=== PATIENT | female | born 1935 | race Caucasian/White ===

== ENCOUNTER 2018-07-04 13:11 | Inpatient (IN) | payer MEDICARE ==
[~2018-07-04] VITALS: Ht 162.6 cm; Wt 79.4 kg
[2018-07-04] VITALS (14 sets, daily range): BP systolic 96–153; BP diastolic 58–71
[~2018-07-04 13:11] MED LIST: ceFAZolin 1gm IVPB IVPB ONE; celeBREX 200mg Cap **SURGERY PATIENTS ONLY ORAL ONE; oxyCONTIN 20mg tab ORAL ONE
--- NOTE | 2018-07-04 14:13 | Pre-Procedure Note/Attestation ---
Pre-Procedure Note/Attestation Complete Prior to Procedure Planned Procedure: left Procedure Narrative: reverse shoulder replacement Indications for Procedure Pre-Operative Diagnosis: left shoulder rc arthropathy Attestation I attest that I discussed the nature of the procedure; its benefits; risks and complications; and alternatives (and the risks and benefits of such alternatives ), prior to the procedure, with the patient (or the patient's legal field service representative). I attest that, if there was a reasonable possibility of needing a blood transfusion, the patient (or the patient's legal field service representative) was given the [facility] standardized written summary, pursuant to the Yoni Bob Blood Safety Act ([place] Health and Safety Code # 1645, as amended). I attest that I re-evaluated the patient just prior to the surgery and that there has been no change in the patient's H&P, except as documented below: Ravin Juares MD July 04, 2018 14:13
--- NOTE | 2018-07-04 14:13 | Operative Note - PDOC ---
Operative Note Operative Note Pre-op Diagnosis: left shoulder rc arthropathy Procedure: see op report Post-op Diagnosis: same as pre-op plus Operative Findings: consistent w/pre-op dx studies Anesthesia: regional Specimen: none Complications: none Condition: stable Estimated Blood Loss: none Implant(s) used?: Yes Ravin Juares MD July 04, 2018 14:13
[2018-07-04] MEDS ORDERED: Hydromorphone 0.5mg/0.5ml inj SUBQ PRN (14:15)
[2018-07-04] MEDS ORDERED: HYDROcodone/Acetamin 5/325 tab ORAL PRN (14:15)
[2018-07-04 14:28] LABS: INR 1.1 (0.9-1.1)
[2018-07-04] MEDS ORDERED: ASPIR 8181 MG ORAL (14:29)
[2018-07-04] MEDS ORDERED: COLCHICINE0.6 M1 PO (14:29)
[2018-07-04] MEDS ORDERED: CRESTOR40 MG ORAL (14:29)
[2018-07-04] MEDS ORDERED: XARELTO10 MG ORAL (14:29)
[2018-07-04] MEDS ORDERED: LEVOTHYROXINE125 MCG ORAL (14:29)
[2018-07-04] MEDS ORDERED: AMBIEN10 M1 ORAL (14:29)
[2018-07-04] MEDS ORDERED: PROTONIX40 MG ORAL (14:29)
[2018-07-04] MEDS ORDERED: SPIRONOLACTONE25 MG ORAL (14:29)
[2018-07-04] MEDS ORDERED: AMIODARONE HCL100 MG ORAL (14:29)
[2018-07-04] MEDS ORDERED: POTASSIUM CHLOR8 ME2 PO (14:29)
[2018-07-04] MEDS ORDERED: FUROSEMIDE40 MG ORAL (14:29)
[2018-07-04] MEDS ORDERED: BUPROPION XL300 M1 PO (14:29)
[2018-07-04] MEDS ORDERED: Ropivacaine 5mg/ml Vial 30ml INJ ONE (15:11)
[2018-07-04] MEDS ORDERED: Sodium Chloride 10ml vial INJ ONE (15:12)
[2018-07-04] MEDS ORDERED: Midazolam 2mg/2ml Inj ONE (15:12)
[2018-07-04] MEDS ORDERED: Lidocaine 1% MPF 10mg/ml 5ml ONE (15:12)
[2018-07-04] MEDS ORDERED: Propofol 200mg/20ml IV ONE (15:12)
[2018-07-04] MEDS ORDERED: Dexamethasone 4mg/ml vial ONE (15:12)
--- NOTE | 2018-07-04 15:30 | Anethesia Preoperative Eval ---
Anesthesia Pre-op PMH/ROS General Date of Evaluation: July 04, 2018 Time of Evaluation: 15:41 Anesthesiologist: Shellie ASA Score: ASA 3 Mallampati Score Class I : Soft palate, uvula, fauces, pillars visible Class II: Soft palate, uvula, fauces visible Class III: Soft palate, base of uvula visible Class IV: Only hard plate visible Mallampati Classification: Class II Surgeon: Mor Diagnosis: L Shoulder Pain Surgical Procedure: L Shoulder Reverse Replacment Anesthesia History: PONV Family History: no anesthesia problems Allergies: Coded Allergies: No Known Allergies (Verified , 07/04/18) Medications: see eMAR Patient NPO?: Yes NPO Date: July 04, 2018 NPO Time: 0515 Past Medical History Cardiovascular: Reports: HTN, CAD - CABG, ID, other - HL Pulmonary: Reports: asthma Neurologic/Psychiatric: Reports: depression/anxiety Endocrine: Reports: hypothyroidism PSxH Narrative: CABGX4, Cholecystectomy, L Femur, Bilateral THR, Right Knee, Shoulder Replacement Anesthesia Pre-op Phys. Exam Physician Exam Last Vital Signs Date Time Temp Pulse Resp B/P (MAP) Pulse Ox O2 Delivery O2 Flow Rate FiO2 07/04/18 14:00 Room Air 07/04/18 13:30 97.8 61 15 104/63 99 Constitutional: NAD Neurologic: CN 2-12 intact Cardiovascular: RRR Respiratory: CTA Gastrointestinal: S/NT/ND Airway Exam Mallampati Score: Class II MO: limited ROM: limited Teeth: missing Anesthesia Pre-op A/P Labs Coagulation Test 07/04/18 14:00 Prothrombin Time 12.0 SEC (9.30-11.50) H Prothromb Time International Ratio 1.1 (0.9-1.1) Activated Partial Thromboplast Time 27 SEC (23-33) Risk Assessment & Plan Assessment: ASA 3 Plan: GA, SED, L Supraclavicular Block Status Change Before Surgery: No Pre-Antibiotics Dru Grams Ancef IV Given Within 1 Hr of Incision: Yes Time Given: 16:01 Bc Hensley MD July 04, 2018 15:30
--- NOTE | 2018-07-04 15:31 | Immediate Post-Op Evaluation ---
Immediate Post-Op Evalulation Immediate Post-Op Evalulation Procedure: L Shoulder Reverse Replacment Date of Evaluation: July 04, 2018 Time of Evaluation: 18:40 IV Fluids: 900 LR Blood Products: 0 Estimated Blood Loss: 75 Urinary Output: 0 Blood Pressure Systolic: 153 Blood Pressure Diastolic: 71 Pulse Rate: 56 Respiratory Rate: 16 O2 Sat by Pulse Oximetry: 100 Temperature (Fahrenheit): 97 Pain Score (1-10): 2 Nausea: No Vomiting: No Complications 0 Patient Status: awake, reacts, patent, none Hydration Status: adequate Dru Grams Ancef IV Given Within 1 Hr of Incision: Yes Time Given: 16:01 Bc Hensley MD July 04, 2018 15:31
--- NOTE | 2018-07-04 15:32 | 48 Hour Post Anesthesia Eval ---
Post Anesthesia Evaluation Procedure: L Shoulder Reverse Replacment Date of Evaluation: July 04, 2018 Time of Evaluation: 20:46 Blood Pressure Systolic: 138 0: 89 Pulse Rate: 52 Respiratory Rate: 18 Temperature (Fahrenheit): 98.2 O2 Sat by Pulse Oximetry: 100 Airway: patent Nausea: No Vomiting: No Pain Intensity: 2 Hydration Status: adequate Cardiopulmonary Status: Stable Mental Status/LOC: patient returned to baseline Follow-up Care/Observations: 0 Post-Anesthesia Complications: 0 Follow-up care needed: N/A Bc Hensley MD July 04, 2018 15:32
[2018-07-04] MEDS ORDERED: Ketamine 500mg Inj ONE (15:34)
[2018-07-04] MEDS ORDERED: LR 1000ml ONE (15:40)
[2018-07-04] MEDS ORDERED: Sterile Water Irrig 1000ml IRRIG ONE (15:40)
[2018-07-04] MEDS ORDERED: NS Irrig 2000ml IRRIG ONE (15:40)
[2018-07-04] MEDS ORDERED: NS Irrig 1000ml ONE (15:40)
[2018-07-04] MEDS ORDERED: Bacitracin 50000 Units Vial ONE (15:43)
[2018-07-04] MEDS ORDERED: NeoSporin Gu Irrig 1ml Amp IRRIG ONE (15:43)
[2018-07-04] MEDS ORDERED: Glycopyrrolate 0.2mg/ml 1ml Vial ONE ×2 (16:18→17:24)
[2018-07-04] MEDS ORDERED: Lidocaine 1% 10mg/ml/Epi 0.005mg/ml 30ml vial INJ ONE (16:32)
[2018-07-04] MEDS ORDERED: Tranexamic Acid 1,000 MG in NS 65 ML IV ONE ×2 (16:45→17:45)
[2018-07-04] MEDS ORDERED: Hydrogen Peroxide 473ml Bottle TOPIC ONE (18:05)
[2018-07-04] MEDS: D5 1/2NS 1,000 ML IV SCH (19:55)
--- NOTE | 2018-07-04 19:55 | NUR ---
NURSE NOTES: Received report & pt from NAWAF Whittington (PACU) via bed. Pt lying in bed, a&ox4, on O2 via NC @ 3LPM, family members at bedside. No s/s of acute distress & no c/o pain at this time. Pt with left supraclavicular nerve block, still unable to move left arm, but left arm warm to touch. Pt belongings signed & accounted for. Surgical dressing C/D/I. IV site intact with IVF running as ordered. Oriented to hospital facility, all questions addressed. Bed in lowest position, call light within reach. Will continue to monitor.
[2018-07-04] MEDS: Docusate 100mg cap ORAL SCH (21:01)
[2018-07-04] MEDS: oxyCONTIN 20mg tab ORAL SCH (21:02)
[2018-07-04] MEDS: ceFAZolin sod 1 GM in D5W 55 ML IV SCH (23:40)
[2018-07-05] VITALS: BP 119/64
--- NOTE | 2018-07-05 00:30 | Operative Note - Dictated ---
DATE OF OPERATION: 07/04/2018 PREOPERATIVE DIAGNOSES: 1. Left shoulder arthritis. 2. Left shoulder chronic rotator cuff tear. POSTOPERATIVE DIAGNOSES: 1. Left shoulder arthritis. 2. Left shoulder chronic rotator cuff tear. PROCEDURE: 1. Left shoulder reverse total shoulder replacement. 2. Left shoulder open subpectoral biceps tenodesis. 3. Subacromial bursectomy and release of the CA ligament. SURGEON: Ravin Juares M.D. ANESTHESIA: Interscalene with general. INDICATION FOR PROCEDURE: The patient is a pleasant female who has got progressive left shoulder pain. She had MRI, which showed chronic supraspinatus and infraspinatus tendon tear with partial tearing of the subscap. She had constant pain and difficulty with activities of daily living, elected to undergo reverse shoulder replacement. Risks, limitations, expectations, and complications of procedure were discussed in detail. All questions addressed. DESCRIPTION OF PROCEDURE: After informed consent was obtained, the patient was brought to the operative room. The patient was placed under monitored anesthesia control. The patient then carefully positioned in beach chair position. Left shoulder was prepped and draped in a sterile manner. Time-out was performed. Deltopectoral incision was then made. The biceps tendon was identified and tenotomized along the bicipital tuberosity. A subpectoral biceps tenodesis was performed using #2 FiberWire. The subscapularis was then peeled off the lesser tuberosity. The subacromial bursectomy was completed along with release of the CA ligament. Once this was done, the humeral head was dislocated. Anterior osteophytes were removed off the humeral head and the humeral neck cut was then made and the humeral stem was then broached to size 11. Once this was completed, the glenoid was well visualized. The labrum was removed 360 degrees circumferentially to make sure we can see the inferior, superior, anterior, and posterior borders of the glenoid. Guide was then placed along with the . A 32 mm glenoid spear was then placed. Three cortical screws were placed along with a 32 mm cup. Once this was done, it was trialed with a size 11 stem with a 32 +4 mm insert. There was good tension of the coracoid tendon. Shoulder abducted. The humeral head was pointed in the center of the glenoid, which is 150 abduction 90, external rotation was 70, internal rotation was 70. At this point, the trial components were removed. Final implants were impacted into place. The wound was copiously irrigated. The skin was closed with #1 Vicryl suture, 2-0 Vicryl, 3-0 Monocryl suture. Dermabond and compression dressing was applied. The patient was awoken and taken to recovery room with stable vital signs. ESTIMATED BLOOD LOSS: None. COMPLICATIONS: None. SPECIMENS: None. IMPLANTS: None. Ravin Juares M.D. DR: EUGENE JOB#: [id number] CC:
[2018-07-05] MEDS: D5 1/2NS 1,000 ML IV SCH ×2 (03:03→17:40)
[2018-07-05 04:00] VITALS: BP 103/50
--- NOTE | 2018-07-05 06:46 | NUR ---
NURSE NOTES: Pt hasn't urinated since after surgery last night 1954. Per pt, she's only drinking sips of water. Encouraged to drink more fluids. Bladder scan done with 371ml PVR result. Encouraged pt to sit down now using commode to try to urinate but pt states she'll do it later after breakfast. Informed Dr. Juares, awaiting response. Will endorse to AM shift.
--- NOTE | 2018-07-05 07:30 | NUR ---
HAND-OFF: Report given to NAWAF Clarke. Rounds done. Pt in stable condition.
--- NOTE | 2018-07-05 07:40 | NUR ---
NURSE NOTES: Received patient in bed, awake, alert and oriented x4. Not in acute respiratory/cardiac distress @ this time. Surgical dressing intact, dry and clean, no visible bleeding. Able to move her fingers, skin warm to touch.Patient denies any pain or discomfort but has not urinated yet.Abdomen is soft to touch.Dr. Juares replied to slot shift manager to monitor one more hour and offer in and out cath if patient wants. RN encouraged patient to get out of bed so she can use a commode or go to bathroom but patient said " I want to wait for the physical therapy."Call light and personnel items within reach. IV intact and running IVF. Bed is in low position and locked. Will continue plan of care and monitor.
[2018-07-05 08:00] VITALS: BP 104/56
[2018-07-05] MEDS: Docusate 100mg cap ORAL SCH ×3 (09:11→17:40)
[2018-07-05] MEDS: oxyCONTIN 20mg tab ORAL SCH ×2 (09:11→20:02)
[2018-07-05] MEDS: celeBREX 200mg Cap **SURGERY PATIENTS ONLY ORAL SCH (09:11)
[2018-07-05] MEDS: ceFAZolin sod 1 GM in D5W 55 ML IV SCH ×2 (09:12→16:22)
--- NOTE | 2018-07-05 10:20 | NUR ---
PT Note PT daron completed, treatment initiated. Patient has an unsteady gait with a stooped posture. Mila is slow and has inadequate dorsiflexion on swing phase. Patient needs PT services to increase her muscle strength and balance to improve her safety in mobility and gait to enable her to return to independent/assisted living facility. Addendum: 07/05/18 at 1021 by BYRON LEE PT Amended: Links added.
--- NOTE | 2018-07-05 10:40 | NUR ---
NURSE NOTES: Patient urinated and bladder scan done with PVR 304ml. Lower abdomen is soft to touch, patient does not complain of pain or discomfort. Will continue to monitor.
--- NOTE | 2018-07-05 11:06 | NUR ---
NURSE NOTES: Patient was seen by Dr. Booth who is covering for Dr. Holbrook. RN relayed patient's voiding status PVR was 304 after patient urinated with no new order for now. Dr. Booth ordered if PVR <200 this afternoon, patient can go home. Dr. Booth went through home medication with new order to continue amiodarone, protonix, levothyroxine and home health for physical therapy per surgeon and continue home meds except ASA and Xarelto upon discharge. Xarelto to resume on Saturday. Patient states that if possible she wants to go home today. Will continue to monitor.
--- NOTE | 2018-07-05 11:07 | NUR ---
NURSE NOTES: Dr. Booth aware of episodes of bradycardia last night and per patient, it is her baseline.
--- NOTE | 2018-07-05 11:48 | NUR ---
NURSE NOTES: RN offered protonix but patient refused to take it stating " I do not need it now." RN educated about med and explained the risks and benefits.
[2018-07-05 12:00] VITALS: BP 110/73
--- NOTE | 2018-07-05 13:38 | NUR ---
CASE MANAGEMENT: REVIEW 82Y/F DIRECT ADMIT FOR SURGERY CC: LEFT SHOULDER PAIN SI: LEFT SHOULDER RC ARTHROPATHY REVERSE LEFT SHOULDER REPLACEMENT 07/04 T 97.1 HR 57 RR 16 BP 153/71 SAT 100% SIMPLE MASK FLOW RATE 6 PT/INR 12.0/1.1 IS: OXYCONTIN PO X1 CELEBREX PO X1 CEFAZOLIN IV X1 PATIENT ADMITTED TO MED/SURG UNIT 07/04/2018 DCP: PATIENT IS FROM HOME
--- NOTE | 2018-07-05 15:05 | Pulmonology Progress Note ---
Assessment/Plan Assessment/Plan Pulmonary Consultation Note HPI: Patient is an 82 year old woman status post left reverse shoulder replacement for left shoulder rc arthropathy, tolerated procedure well, no current complaints Denies shortness of breath, chest pain, nausea/vomiting. PMH: Hypertension, Coronary Artery Disease, Previous [place], Congestive Heart Failure, Atrial Fibrillation on Pradaxa pre-operatively, Previous 4 vessel CABG , Hypothyroidism, GERD, Hyperlipidemia Pre-operative medications: Lasix 40 mg faily, Spironolactone 25 mg daily, Amiodarone 200mg daily, Synthyroid 150 mcg daily, Protonix 40mg daily, KCL 8mg daily, Crestor 40 mg daily, Ambien 10mg prn QHS Allergies: NKDA ROS: Negative aside from above FH: NC Habits: NC Social Hx: NC Physical Examination: Lying comfortably in bed, left arm in sling HEENT: NCAT, moist mm, JVP 6cm Chest: CTAB, no wheeze Heart: HS1, HS2, RRR Abdomen: SNTND Extrem: Well perfused, no edema, left arm in sling well perfused, wounds dressed 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 AND 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: Intact Impression Patient status post left reverse shoulder replacement for left shoulder rc arthropathy, tolerated procedure well, no current complaints Hypertension Coronary Artery Disease Previous [place], Congestive Heart Failure Atrial Fibrillation on Pradaxa pre-operatively Previous 4 vessel CABG Hypothyroidism GERD Hyperlipidemia Plan Continue CIVIL DESIGN SPECIALIST medications Ensure voiding adequately Restart Pradaxa after 48 hours OK for DC if cleared by surgery Subjective ROS Limited/Unobtainable: No Allergies: Coded Allergies: No Known Allergies (Verified , 07/04/18) Objective Last 24 Hour Vital Signs Date Time Temp Pulse Resp B/P (MAP) Pulse Ox O2 Delivery O2 Flow Rate FiO2 07/05/18 12:00 98.1 50 19 110/73 (85) 95 07/05/18 09:00 Room Air 07/05/18 08:00 98.3 93 19 104/56 (72) 95 07/05/18 04:00 98.4 48 17 103/50 (67) 94 07/05/18 00:00 98.2 60 16 119/64 (82) 96 07/04/18 21:00 Nasal Cannula 1.0 07/04/18 20:56 97.9 48 17 115/58 (77) 100 07/04/18 19:45 55 17 132/62 98 Nasal Cannula 3 07/04/18 19:25 97.8 53 16 141/63 100 Nasal Cannula 3 07/04/18 19:15 49 16 146/66 100 Nasal Cannula 3 07/04/18 19:00 52 16 145/64 100 Nasal Cannula 3 07/04/18 18:50 57 16 147/65 100 Simple Mask 6 07/04/18 18:45 52 18 146/66 100 Simple Mask 6 07/04/18 18:35 55 17 145/67 100 Simple Mask 6 07/04/18 18:29 97.1 57 16 153/71 100 Simple Mask 6 07/04/18 18:28 52 18 100 Intake and Output 07/04/18 07/05/18 19:00 07:00 Intake Total 400 ml Balance 400 ml IV Total 400 ml # Voids 1 Current Medications Medications (Trade) Dose Ordered Sig/Rachel Route PRN Reason Start Time Stop Time Status Last Admin Dose Admin Acetaminophen/ Hydrocodone Bitart ([place] 5/325) 1 tab Q4H PRN ORAL For Pain 07/04/18 14:15 07/11/18 14:14 Amiodarone HCl (Cordarone) 200 mg DAILY ORAL 07/06/18 09:00 08/05/18 08:59 Cefazolin Sodium 1 gm/Dextrose 55 ml @ 110 mls/hr Q8H IV 07/05/18 00:00 07/05/18 16:29 07/05/18 09:12 Celecoxib (CeleBREX) 200 mg DAILY ORAL 07/05/18 09:00 08/04/18 08:59 07/05/18 09:11 Dextrose/Sodium Chloride 1,000 ml @ 75 mls/hr Q13H IV 07/04/18 14:15 08/03/18 14:14 07/05/18 03:03 Docusate Sodium (Colace) 100 mg THREE TIMES A DAY ORAL 07/04/18 18:00 08/03/18 17:59 07/05/18 14:35 Hydromorphone HCl (Dilaudid) 0.5 mg Q4H PRN SUBQ Mild Pain (Pain Scale 1-3) 07/04/18 14:15 07/11/18 14:14 Levothyroxine Sodium (Synthroid) 150 mcg ACBREAKFAST ORAL 07/06/18 06:30 08/05/18 06:29 Ondansetron HCl (Zofran) 4 mg Q6H PRN IVP Nausea & Vomiting 07/04/18 14:15 08/03/18 14:14 Oxycodone HCl (OxyCONTIN) 20 mg EVERY 12 HOURS ORAL 07/04/18 21:00 07/11/18 20:59 07/05/18 09:11 Pantoprazole (Protonix) 40 mg DAILY ORAL 07/05/18 11:00 08/04/18 10:59 Temazepam (Restoril) 7.5 mg HSPRN PRN ORAL Insomnia 07/04/18 14:15 07/11/18 14:14 07/05/18 01:17 Vasile Booth MD July 05, 2018 15:05
[2018-07-05 16:00] VITALS: BP 101/50
--- NOTE | 2018-07-05 17:29 | NUR ---
NURSE NOTES: Patient complains of throat pain. Dr. Booth came in and patient was seen by Dr. Booth with no new order. Dr. Booth explained to the patient why she has throat pain.Will continue to monitor.
[2018-07-05 18:25] LABS: BASOPHILS % (AUTO) 0.3 % (0.0-2.0); HEMATOCRIT 34.6 % (37.0-47.0); HEMOGLOBIN 11.3 G/DL (12.0-16.0); LYMPHOCYTES % (AUTO) 9.7 % (20.0-45.0); MEAN CORPUSCULAR VOLUME 87 FL (80-99); MONOCYTES % (AUTO) 7.8 % (1.0-10.0); NEUTROPHILS % (AUTO) 82.2 % (45.0-75.0); PLATELET COUNT 153 K/UL (150-450); RED BLOOD COUNT 3.97 M/UL (4.20-5.40); RED CELL DISTRIBUTION WIDTH 13.7 % (11.6-14.8)
--- NOTE | 2018-07-05 18:30 | NUR ---
NURSE NOTES: 16 fr short was inserted without any difficulties. urine output is 600ml. Patient is stable.
[2018-07-05 18:42] LABS: ANION GAP 9 mmol/L (5-15); BLOOD UREA NITROGEN 23 mg/dL (7-18); CALCIUM 8.7 MG/DL (8.5-10.1); CARBON DIOXIDE 24 MMOL/L (21-32); CHLORIDE 96 MMOL/L (98-107); CREATININE 1.3 MG/DL (0.55-1.30); SODIUM 129 MMOL/L (136-145)
--- NOTE | 2018-07-05 19:18 | NUR ---
HAND-OFF: Report given to Jeana Dobbins. Patient is in stable condition.
--- NOTE | 2018-07-05 19:30 | NUR ---
NURSE NOTES: Received report & pt from NAWAF Clarke. Pt lying in bed, a&ox4, in room air. No s/s of acute distress & c/o 8/10 pain. Will give PRN pain med when due & pt verbalized understanding. Thompson intact & draining yellow urine output to gravity. Surgical dressing C/D/I. IV site intact with IVF running as ordered. Bed in lowest position, call light within reach. Will continue to monitor.
--- NOTE | 2018-07-05 19:40 | NUR ---
NURSE NOTES: Called Dr. Booth & left msg to inform about pt's WBC result 15 & pt afebrile.
[2018-07-05 20:00] VITALS: BP 130/50
[2018-07-06 04:00] VITALS: BP 102/44
--- NOTE | 2018-07-06 05:00 | NUR ---
NURSE NOTES: Pt complaining she feel very acidic & requesting for med. Called & left msg to Dr. Holbrook, awaiting call back. Will continue to monitor.
[2018-07-06] MEDS: D5 1/2NS 1,000 ML IV SCH (05:16)
--- NOTE | 2018-07-06 05:30 | NUR ---
NURSE NOTES: Pt now asleep. no distress noted. States heartburn is less now however still feeling acidic.
--- NOTE | 2018-07-06 05:57 | NUR ---
NURSE NOTES: Called & left msg again to Dr. Holbrook regarding pt's concern about still feeling acidic. Per pt, the acidity is coming back. Will continue to monitor. Addendum: 07/06/18 at 0641 by Jeana Rubio RN Pt upset & continues to complain about her acidity. Called & left msg to Dr. Booth as well. Awaiting response. Charge nurse Jhonny burden. Will continue to monitor.
[2018-07-06 06:49] LABS: ANION GAP 8 mmol/L (5-15); BLOOD UREA NITROGEN 21 mg/dL (7-18); CALCIUM 8.4 MG/DL (8.5-10.1); CARBON DIOXIDE 23 MMOL/L (21-32); CHLORIDE 96 MMOL/L (98-107); POTASSIUM 4.6 MMOL/L (3.5-5.1); SODIUM 127 MMOL/L (136-145)
[2018-07-06 06:57] LABS: BASOPHILS % (AUTO) 0.5 % (0.0-2.0); EOSINOPHILS % (AUTO) 0.1 % (0.0-3.0); HEMATOCRIT 31.3 % (37.0-47.0); HEMOGLOBIN 10.4 G/DL (12.0-16.0); LYMPHOCYTES % (AUTO) 19.5 % (20.0-45.0); MEAN CORPUSCULAR VOLUME 88 FL (80-99); MONOCYTES % (AUTO) 10.4 % (1.0-10.0); NEUTROPHILS % (AUTO) 69.6 % (45.0-75.0); PLATELET COUNT 150 K/UL (150-450); RED BLOOD COUNT 3.56 M/UL (4.20-5.40); RED CELL DISTRIBUTION WIDTH 14.3 % (11.6-14.8); WHITE BLOOD COUNT 9.8 K/UL (4.8-10.8)
--- NOTE | 2018-07-06 07:30 | NUR ---
HAND-OFF: Report given to NAWAF Varner. Pt in stable condition. Rounds done. Dr. Booth replied with new order for Mylanta 30ml PO PRN Q12HR for dyspepsia. Med given to pt. Endorsed to AM shift to remove short catheter.
--- NOTE | 2018-07-06 07:53 | NUR ---
NURSE NOTES: Received report from NAWAF Hills. Rounding done with outgoing nurse. Patient a/o x4 lying on the bed. No respiratory distress noted. c/o left shoulder pain as 5/10 and pain medicine will be given as MD ordered. Thompson catheter is patent and yellowish color noted and will be removed soon. Bed in lowest position, call light within reach. Will continue to monitor.
[2018-07-06 07:55] VITALS: BP 106/46
[2018-07-06 08:00] VITALS: BP 106/46
[2018-07-06] MEDS ORDERED: D5 1/2NS 1000ml IV ONE (08:53)
[2018-07-06] MEDS ORDERED: Amiodarone 200mg tab ORAL SCH (09:00)
[2018-07-06] MEDS: Docusate 100mg cap ORAL SCH ×3 (09:19→18:05)
[2018-07-06] MEDS: celeBREX 200mg Cap **SURGERY PATIENTS ONLY ORAL SCH (09:19)
[2018-07-06] MEDS: oxyCONTIN 20mg tab ORAL SCH (09:20)
--- NOTE | 2018-07-06 10:19 | Pulmonology Progress Note ---
Assessment/Plan Assessment/Plan Pulmonary Progress Note HPI: Patient is an 82 year old woman status post left reverse shoulder replacement for left shoulder rc arthropathy, tolerated procedure well, no current complaints Denies shortness of breath, chest pain, nausea/vomiting. Required Thompson Catheter yesterday Hyponatremic - currently on cautious IV NS PMH: Hypertension, Coronary Artery Disease, Previous [place], Congestive Heart Failure, Atrial Fibrillation on Pradaxa pre-operatively, Previous 4 vessel CABG , Hypothyroidism, GERD, Hyperlipidemia Pre-operative medications: Lasix 40 mg faily, Spironolactone 25 mg daily, Amiodarone 200mg daily, Synthyroid 150 mcg daily, Protonix 40mg daily, KCL 8mg daily, Crestor 40 mg daily, Ambien 10mg prn QHS Allergies: NKDA ROS: Negative aside from above FH: NC Habits: NC Social Hx: NC Physical Examination: Lying comfortably in bed, left arm in sling HEENT: NCAT, moist mm, JVP 6cm Chest: CTAB, no wheeze Heart: HS1, HS2, RRR Abdomen: SNTND Extrem: Well perfused, no edema, left arm in sling well perfused, wounds dressed 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 Impression Patient status post left reverse shoulder replacement for left shoulder rc arthropathy, tolerated procedure well, no current complaints Hypertension Coronary Artery Disease Previous [place], Congestive Heart Failure Atrial Fibrillation on Pradaxa pre-operatively Previous 4 vessel CABG Hypothyroidism GERD Hyperlipidemia Plan Continue [employer] medications Ensure voiding adequately Restart Pradaxa after 48 hours Repeant BMP later today If Na improved will be OK for DC today Subjective ROS Limited/Unobtainable: No Allergies: Coded Allergies: No Known Allergies (Verified , 07/04/18) Objective Last 24 Hour Vital Signs Date Time Temp Pulse Resp B/P (MAP) Pulse Ox O2 Delivery O2 Flow Rate FiO2 07/06/18 08:00 97.0 55 19 106/46 (66) 95 07/06/18 07:55 97.0 55 19 106/46 (66) 95 07/06/18 04:00 97.9 50 18 102/44 (63) 94 07/05/18 20:34 Room Air 07/05/18 20:00 97.6 52 20 130/50 (76) 95 07/05/18 16:00 98.0 51 20 101/50 (67) 97 07/05/18 12:00 98.1 50 19 110/73 (85) 95 Intake and Output 07/05/18 07/06/18 19:00 07:00 Intake Total 1595 ml 1020 ml Output Total 730 ml 450 ml Balance 865 ml 570 ml Intake Oral 960 ml 120 ml IV Total 635 ml 900 ml Output Urine Total 730 ml 450 ml # Voids 1 Microbiology Date/Time Source Procedure Growth Status 07/04/18 14:00 Nasal Nares MRSA Culture - Final NO METHICILLIN RESISTANT STAPH AUREUS... Complete Laboratory Tests 07/05/18 18:10: White Blood Count 15.0H, Red Blood Count 3.97L, Hemoglobin 11.3L, Hematocrit 34.6L, Mean Corpuscular Volume 87, Mean Corpuscular Hemoglobin 28.5, Mean Corpuscular Hemoglobin Concent 32.8, Red Cell Distribution Width 13.7, Platelet Count 153, Mean Platelet Volume 7.9, Neutrophils (%) (Auto) 82.2H, Lymphocytes ( %) (Auto) 9.7L, Monocytes (%) (Auto) 7.8, Eosinophils (%) (Auto) 0.0, Basophils (%) (Auto) 0.3, Sodium Level 129L, Potassium Level 5.0, Chloride Level 96L, Carbon Dioxide Level 24, Anion Gap 9, Blood Urea Nitrogen 23H, Creatinine 1.3, Estimat Glomerular Filtration Rate , Glucose Level 148H, Calcium Level 8.7 07/06/18 05:27: White Blood Count 9.8, Red Blood Count 3.56L, Hemoglobin 10.4L, Hematocrit 31.3L , Mean Corpuscular Volume 88, Mean Corpuscular Hemoglobin 29.1, Mean Corpuscular Hemoglobin Concent 33.1, Red Cell Distribution Width 14.3, Platelet Count 150, Mean Platelet Volume 9.3, Neutrophils (%) (Auto) 69.6, Lymphocytes (% ) (Auto) 19.5L, Monocytes (%) (Auto) 10.4H, Eosinophils (%) (Auto) 0.1, Basophils (%) (Auto) 0.5, Sodium Level 127L, Potassium Level 4.6, Chloride Level 96L, Carbon Dioxide Level 23, Anion Gap 8, Blood Urea Nitrogen 21H, Creatinine 1.0, Estimat Glomerular Filtration Rate , Glucose Level 141H, Calcium Level 8.4L Current Medications Medications (Trade) Dose Ordered Sig/Rachel Route PRN Reason Start Time Stop Time Status Last Admin Dose Admin Acetaminophen/ Hydrocodone Bitart ([place] 5/325) 1 tab Q4H PRN ORAL For Pain 07/04/18 14:15 07/11/18 14:14 Al Hydroxide/Mg Hydroxide (Mylanta) 30 ml Q12H PRN ORAL Dyspepsia 07/06/18 07:30 08/05/18 07:29 07/06/18 07:33 Amiodarone HCl (Cordarone) 200 mg DAILY ORAL 07/06/18 09:00 08/05/18 08:59 07/06/18 09:19 Celecoxib (CeleBREX) 200 mg DAILY ORAL 07/05/18 09:00 08/04/18 08:59 07/06/18 09:19 Dextrose/Sodium Chloride 1,000 ml @ 75 mls/hr Q13H IV 07/04/18 14:15 08/03/18 14:14 07/06/18 05:16 Docusate Sodium (Colace) 100 mg THREE TIMES A DAY ORAL 07/04/18 18:00 08/03/18 17:59 07/06/18 09:19 Hydromorphone HCl (Dilaudid) 0.5 mg Q4H PRN SUBQ Mild Pain (Pain Scale 1-3) 07/04/18 14:15 07/11/18 14:14 Levothyroxine Sodium (Synthroid) 150 mcg ACBREAKFAST ORAL 07/06/18 06:30 08/05/18 06:29 07/06/18 05:36 Ondansetron HCl (Zofran) 4 mg Q6H PRN IVP Nausea & Vomiting 07/04/18 14:15 08/03/18 14:14 Oxycodone HCl (OxyCONTIN) 20 mg EVERY 12 HOURS ORAL 07/04/18 21:00 07/11/18 20:59 07/06/18 09:20 Pantoprazole (Protonix) 40 mg DAILY ORAL 07/05/18 11:00 08/04/18 10:59 07/06/18 09:19 Temazepam (Restoril) 7.5 mg HSPRN PRN ORAL Insomnia 07/04/18 14:15 07/11/18 14:14 5/11/19 01:17 Vasile Booth MD July 06, 2018 10:19
[2018-07-06 11:35] VITALS: BP 111/44
--- NOTE | 2018-07-06 11:47 | NUR ---
CASE MANAGEMENT: REVIEW 07/06/2018 SI:LEFT SHOULDER END STAGE ARTHRITIS. T 97 HR 55 RR 19 B/P 106/46 SATS 95% ON RA NA 127 CL 96 BUN 21 GLU 141 CA 8.4 IS:IVF @ 50 mL/HR OXYCODONE PO Q12H CELEXA PO QD CORDARONE PO QD PROTONIX PO QD MED/SURG STATUS PLAN OF CARE: POST OP CARE CORRECT NA
--- NOTE | 2018-07-06 14:00 | NUR ---
CHARGE NURSE NOTES: sPOKE W/ Dr Juares, updated on the patients' condition. No urine output after removal of the short since removal at 0930 & the low NA level & new orders from Dr Booth. He wants to be called back at 1600 after the BMP result in.
--- NOTE | 2018-07-06 15:30 | NUR ---
NURSE NOTES: Post void residual was done. (R: 143ml).
[2018-07-06 16:00] VITALS: BP 103/61
[2018-07-06 17:04] LABS: ANION GAP 8 mmol/L (5-15); BLOOD UREA NITROGEN 20 mg/dL (7-18); CALCIUM 8.3 MG/DL (8.5-10.1); CARBON DIOXIDE 26 MMOL/L (21-32); CHLORIDE 96 MMOL/L (98-107); CREATININE 0.9 MG/DL (0.55-1.30); POTASSIUM 4.4 MMOL/L (3.5-5.1); SODIUM 130 MMOL/L (136-145)
--- NOTE | 2018-07-06 17:09 | NUR ---
CHARGE NURSE NOTES: Dr Juares called & left message for updates regarding pt.
--- NOTE | 2018-07-06 17:10 | NUR ---
NURSE NOTES: Sodium is [address] Booth notified. ordered discharge home. Noted and carried out.
[2018-07-06] MEDS ORDERED: NEURONTIN100 MG ORAL (17:24)
[2018-07-06] MEDS ORDERED: PERCOCET 10-321 EACH ORAL (17:24)
[2018-07-06] MEDS ORDERED: NAPROXEN250 MG ORAL (17:25)
--- NOTE | 2018-07-06 18:15 | NUR ---
NURSE NOTES: Discharge instruction was given. Belongings checked with pt. IV line and arm band were removed. Patient discharged with her daughter in stable condition.
--- NOTE | 2018-07-07 12:04 | Diagnostic Imaging Report ---
Indication: left shoulder pain Findings: 3 views of the left shoulder were obtained. There is a reverse left shoulder arthroplasty present. Alignment and position of the prosthesis appears satisfactory on the 2 views obtained. There is soft tissue air indicative of the recent surgery. IMPRESSION: Status post reverse left total shoulder arthroplasty
--- NOTE | 2018-07-08 13:48 | Discharge Summary ---
Discharge Summary Hospital Course Date of Admission July 04, 2018 at 13:11 Date of Discharge July 06, 2018 at 18:00 Admitting Diagnosis Left shoulder arthritis. Left shoulder chronic rotator cuff tear. Reason for Hospitalization: elective surgery HPI Summer White is a 82 year old female who was admitted on July 04, 2018 at 13: 11 for Left Shoulder End Stage Arthritis. Patient admitted for elective surgery. Procedures s/p 07/04/[address] Juares 1. Left shoulder reverse total shoulder replacement. 2. Left shoulder open subpectoral biceps tenodesis. 3. Subacromial bursectomy and release of the CA ligament. Hospital Course status post surgery course of recovery uneventful initially IV fluids s/p perioperative antibiotics neurovascular status closely monitored, stable incision clean, dry ,and intact pain management addressed pain specialist followed; pain controlled hemodynamically stable ambulated with PT DVT prophylaxis with SCD provided use of incentive spirometry was encouraged while in the bed fall precautions maintained; safe for ambulation restart anticoagulation in 48 hrs after surgery tolerated diet , IV fluids discontinued GI prophylaxis provided antiemetics were on board as needed blood pressure was managed with current regimen and remained stable Thompson catheter discontinued, initially difficulties with voiding eventually voided, postvoid residual- 143 ml residual, noted hypo Na, sodium repleted, Na subsequently improved bowel regimen instituted patient was stable for discharge discharge instructions provided follow up with surgeon as outpatient as advised by surgeon FINAL DIAGNOSES 1. Left shoulder arthritis. 2. Left shoulder chronic rotator cuff tear. 3. s/p Left shoulder reverse total shoulder replacement. Left shoulder open subpectoral biceps tenodesis. Subacromial bursectomy and release of the CA ligament 4. Hyponatremia - improved 5. HTN 6. CAD with hx of NO and CABG ( 4 vessels) 7. Atrial fibrillation 8. Hypothyroidism 9. GERD 10. Hyperlipidemia Discharge Medications Continued Medications: Amiodarone Hcl (Amiodarone Hcl) 100 Mg Tablet 200 MG ORAL DAILY, TAB (This prescription has been renewed) Aspirin* (Aspir 81*) 81 Mg Tablet.dr 81 MG ORAL DAILY, TAB (This prescription has been renewed) Bupropion HCl (Bupropion Xl) 300 Mg Tab.er.24h 300 MG PO DAILY, TAB (This prescription has been renewed) Colchicine (Colchicine) 0.6 Mg Capsule 0.6 MG PO EVERY OTHER DAY, CAP (This prescription has been renewed) Furosemide* (Lasix*) 40 Mg Tablet 40 MG ORAL DAILY, TAB (This prescription has been renewed) Gabapentin* (Neurontin*) 100 Mg Capsule 100 MG ORAL THREE TIMES A DAY, #90 CAP 0 Refills (This prescription has been renewed) Levothyroxine Sodium* (Levothyroxine Sodium*) 125 Mcg Tablet 150 MCG ORAL DAILY, TAB (This prescription has been renewed) Take in the morning on an empty stomach, at least 30 minutes before food. Naproxen* (Naprosyn*) 250 Mg Tablet 500 MG ORAL TWICE A DAY, #60 TAB 0 Refills (This prescription has been renewed) Oxycodone Hcl/Acetaminophen 10-325 Mg Tablet (Percocet 10-325 Mg Tablet*) 1 Each Tablet 1 TAB ORAL Q6H PRN for For Pain, #30 TAB 0 Refills (This prescription has been renewed) Pantoprazole* (Protonix*) 40 Mg Tablet.dr 40 MG ORAL DAILY, TAB (This prescription has been renewed) Potassium Chloride (Potassium Chloride) 8 Meq Capsule.er 8 MEQ PO DAILY, CAP (This prescription has been renewed) Rosuvastatin Calcium* (Crestor*) 40 Mg Tablet 40 MG ORAL DAILY, TAB (This prescription has been renewed) Spironolactone* (Aldactone*) 25 Mg Tablet 25 MG ORAL DAILY, TAB (This prescription has been renewed) Zolpidem Tartrate* (Ambien*) 10 Mg Tablet 10 MG ORAL HS PRN for Insomnia, TAB (This prescription has been renewed) Discharge Condition Upon Discharge: stable Discharge Disposition Patient was discharged home Discharge Instructions Discharge Instructions Special Instructions I have been assigned to complete a D/C Summary on this account. I was not involved in the patient management Pily Fernández NP July 08, 2018 13:48
== END 2018-07-06 18:00 | disposition home or self-care (01) | DRG 483 ==
LOC: SDSOVERFLO 13:11 → EDSTATUS 16:00 → 3E 19:55
PROC: 0RRK00Z Replacement of Left Shoulder Joint with Reverse Ball and Socket Synthetic Substitute, Open Approach (ICD-10-PCS; principal; 2018-07-04 15:45)
DX: M13.812 Other specified arthritis, left shoulder (principal); M75.102 Unspecified rotator cuff tear or rupture of left shoulder, not specified as traumatic; J44.9 Chronic obstructive pulmonary disease, unspecified; Z86.718 Personal history of other venous thrombosis and embolism; I10 Essential (primary) hypertension; E03.9 Hypothyroidism, unspecified; E78.5 Hyperlipidemia, unspecified; I25.2 Old myocardial infarction; I25.10 Atherosclerotic heart disease of native coronary artery without angina pectoris; I65.29 Occlusion and stenosis of unspecified carotid artery; Z79.82 Long term (current) use of aspirin
CPT/HCPCS: 36415; 80048; 85025; 85610; 85730; 86850; 86870; 86900; 86901; 87081; J2250; J2405